=== PATIENT | female | born 1970 | race Caucasian/White ===

== ENCOUNTER 2018-01-19 17:32 | Emergency (ER) | payer OTHER ==
[2018-01-19] MEDS: CIPROFLOXACIN HC OTIC SUSPENSION AU (19:15)
== END 2018-01-19 19:44 | disposition home or self-care (01) ==
LOC: M ED 17:32
DX: H60.93 Unspecified otitis externa, bilateral (principal); G43.909 Migraine, unspecified, not intractable, without status migrainosus; K21.9 Gastro-esophageal reflux disease without esophagitis; F19.10 Other psychoactive substance abuse, uncomplicated
CPT/HCPCS: 99283

== ENCOUNTER → 2018-05-28 | Outpatient (REF) | payer OTHER | LOC: M LAB REF 09:35 | DX: Z12.4 Encounter for screening for malignant neoplasm of cervix (principal); R85.612 Low grade squamous intraepithelial lesion on cytologic smear of anus (LGSIL) | CPT/HCPCS: 88142 ==

== ENCOUNTER → 2018-07-16 | Outpatient (CLI) | payer OTHER | LOC: M RAD 11:35 | DX: Z12.31 Encounter for screening mammogram for malignant neoplasm of breast (principal) | CPT/HCPCS: 77067 ==

== ENCOUNTER → 2019-05-07 | Outpatient (REF) | payer OTHER ==
[~2019-05-07] MED LIST: ACET65TA OR; CIPR0.3S AU; FLAG500T OR; IBUP600T OR; ONDA-1 OR; PRIL20CA OR; VICO5TAB OR
== END ==
LOC: M SFHCLERA 12:50
PROVIDERS: ATTEND Physician Assistant
DX: R50.9 Fever, unspecified (principal)

== ENCOUNTER → 2019-05-07 | Outpatient (CLI) | payer OTHER ==
--- NOTE | 2019-05-07 14:17 | REP ---
CHEST, TWO VIEWS: There is no evidence of acute infiltrate. No pleural effusion is seen. The heart is normal in size. The mediastinal silhouette is unremarkable. The visualized osseous structures are intact. IMPRESSION: No acute pulmonary disease. Electronically Signed by Alonzo Ramsey MD 05/07/2019 07:31 P
== END ==
LOC: M LRY 13:05
PROVIDERS: ATTEND Family Medicine
DX: R50.9 Fever, unspecified (principal); R05 Cough

== ENCOUNTER 2019-12-17 09:48 | Emergency (ER) | payer OTHER ==
[~2019-12-17] VITALS: Ht 170.2 cm; Wt 81.8 kg
[2019-12-17 10:46] LABS: HEMATOCRIT 45.9 % (36.0-47.0); HEMOGLOBIN 14.5 g/dl (12.0-15.5); MEAN CORPUSCULAR HEMOGLOBIN 28.3 pg (27.0-33.0); MEAN CORPUSCULAR HGB CONC 31.6 g/dl (32.0-36.5); MEAN CORPUSCULAR VOLUME 89.6 fl (80.0-96.0); PLATELET COUNT, AUTOMATED 171 10^3/uL (150-450); RED BLOOD COUNT 5.12 10^6/uL (4.00-5.40); WHITE BLOOD COUNT 4.9 10^3/uL (4.0-10.0)
[2019-12-17 11:07] LABS: BLOOD UREA NITROGEN 14 MG/DL (7-18); CALCIUM LEVEL 9.1 MG/DL (8.5-10.1); CARBON DIOXIDE LEVEL 30 MEQ/L (21-32); CHLORIDE LEVEL 108 MEQ/L (98-107); CREATININE FOR GFR 0.96 MG/DL (0.55-1.30); GLOMERULAR FILTRATION RATE > 60.0 (>51); GLUCOSE, FASTING 93 MG/DL (70-100); POTASSIUM SERUM 4.4 MEQ/L (3.5-5.1); SODIUM LEVEL 141 MEQ/L (136-145)
--- NOTE | 2019-12-17 11:24 | REP ---
Head CT without contrast: History: New onset dizziness. Comparison study: October 04, 2011. CT findings: Bone window settings demonstrate an intact bony calvarium. There is no evidence of skull fracture or incidental bony calvarial lesion. The visualized paranasal sinuses appear clear. No intraorbital abnormality is seen. On soft tissue window setting images; the lateral, third, and fourth ventricles are normal in size and position. Ramsey-white differentiation pattern is normal above and below the tentorium. There are is no evidence of intracranial hemorrhage. No mass, edema, infarction, or midline shift is seen. No extra-axial fluid collection is appreciated. Impression: Negative noncontrast head CT. Electronically Signed by Ashok Vivas MD 12/17/2019 11:23 A
[2019-12-17] MEDS ORDERED: ONDANSETRON 4 MG ORAL DISINTEGRATING TAB (Q0162 PER 1MG) PO ONE (11:45)
[2019-12-17 12:31] LABS: AMPHETAMINES LEVEL URINE NEGATIVE (NEGATIVE); BARBITURATES URINE NEGATIVE (NEGATIVE); BENZODIAZEPINES URINE NEGATIVE (NEGATIVE); CANNABINOIDS URINE NEGATIVE (NEGATIVE); COCAINE METABOLITE URINE NEGATIVE (NEGATIVE); METHADONE URINE NEGATIVE (NEGATIVE); OPIATES URINE NEGATIVE (NEGATIVE); PHENCYCLIDINE URINE NEGATIVE (NEGATIVE)
[2019-12-17] MEDS ORDERED: MEDI-453 MC (13:14)
[2019-12-17] MEDS ORDERED: MECLIZINE 25 MG TABLET PO ONE (13:15)
[2019-12-17] MEDS ORDERED: MECL1TAB31 PO (13:17)
[2019-12-17] MEDS ORDERED: ONDA4TAB6 PO (13:17)
[2019-12-17 13:27] VITALS: BP 131/81
--- NOTE | 2019-12-17 20:29 | ECGEPIP ---
[facility] - ED Test Date: 2019-12-17 Pat Name: MARCELA COWART Department: Room: - Gender: Female C D Stripper: CT : 1970 Requested By: Shazia Gomez Order Number: [id number] Reading MD: Shazia Gomez Measurements Intervals [place] Rate: 72 P: 44 [place]: 137 QRS: 3 QRSD: 84 T: 39 QT: 366 QTc: 402 Interpretive Statements SINUS RHYTHM NO PRIOR Electronically Signed on 12-17-2019 20:29:15 EST by Shazia Gomez
== END 2019-12-17 13:31 | disposition home or self-care (01) ==
LOC: M ED 09:48
DX: R42 Dizziness and giddiness (principal); Z79.899 Other long term (current) drug therapy
CPT/HCPCS: 36415; 70450; 80048; 80307; 81001; 85027; 93005; 97112; 97161; 99284; Q0162

== ENCOUNTER 2019-12-20 14:34 | Outpatient (RCR) | payer OTHER ==
[~2019-12-20 14:34] MED LIST changes: +MECL1TAB31 PO; +MEDI-453 MC; +ONDA4TAB6 PO
== END 2019-12-24 ==
LOC: M PT 14:34
PROVIDERS: ATTEND Family Medicine
DX: Z51.89 Encounter for other specified aftercare (principal)

== ENCOUNTER → 2020-01-11 | Outpatient (REF) | payer OTHER ==
[2020-01-12 09:37] LABS: HEPATITIS B SURFACE ANTIBODY NEGATIVE (POSITIVE); RUBELLA IgG QUALITATIVE IMMUNE (IMMUNE)
== END ==
LOC: M SFHCLERA 12:30
PROVIDERS: ATTEND Family Medicine
DX: Z02.1 Encounter for pre-employment examination (principal); Z11.1 Encounter for screening for respiratory tuberculosis

== ENCOUNTER → 2020-01-20 | Outpatient (REF) | payer OTHER | LOC: M SFHCLERA 16:05 | PROVIDERS: ATTEND Family Medicine | DX: Z01.419 Encounter for gynecological examination (general) (routine) without abnormal findings (principal) ==

== ENCOUNTER 2020-09-21 15:33 | Outpatient (RCR) | payer OTHER ==
[~2020-09-21 15:33] MED LIST changes: -CIPR0.3S AU; +CIPR0.3S6 AU
== END 2020-09-23 ==
LOC: M PT 15:33
PROVIDERS: ATTEND Family Medicine
DX: R42 Dizziness and giddiness (principal)

== ENCOUNTER 2020-09-26 14:14 | Outpatient (RCR) | payer OTHER | END 2020-10-23 | LOC: M PT 14:14 | PROVIDERS: ATTEND Family Medicine | DX: R42 Dizziness and giddiness (principal) ==

== ENCOUNTER → 2021-01-31 | Outpatient (CLI) | payer OTHER ==
[2021-01-31 18:50] LABS: HEMOGLOBIN A1c 5.1 %
== END ==
LOC: M LAB 15:25
PROVIDERS: ATTEND Family Medicine
DX: E66.9 Obesity, unspecified (principal)

== ENCOUNTER 2021-02-15 13:45 | Outpatient (RCR) | payer OTHER | END 2021-02-21 | LOC: M PT 13:45 | PROVIDERS: ATTEND Family Medicine | DX: R42 Dizziness and giddiness (principal) ==

== ENCOUNTER 2021-03-15 15:15 | Outpatient (RCR) | payer OTHER | END 2021-03-23 | LOC: M PT 15:15 | PROVIDERS: ATTEND Family Medicine | DX: R42 Dizziness and giddiness (principal) ==

== ENCOUNTER → 2021-05-22 | Outpatient (REF) | payer OTHER | LOC: M SFHCLERA 18:52 | PROVIDERS: ATTEND Student in an Organized Health Care Education/Training Program | DX: Z01.419 Encounter for gynecological examination (general) (routine) without abnormal findings (principal) ==

== ENCOUNTER → 2021-06-14 | Outpatient (REF) | payer OTHER | LOC: M SFHCLERA 14:43 | PROVIDERS: ATTEND Nurse Practitioner Family | DX: R35.0 Frequency of micturition (principal) ==

== ENCOUNTER → 2022-07-17 | Outpatient (CLI) | payer OTHER ==
[2022-07-17 16:11] LABS: BASO % 0.2 % (0.0-1.0); EOS # 0.1 10^3/uL (0.0-0.5); EOS % 1.9 % (0.0-3.0); HEMATOCRIT 41.5 % (36.0-47.0); HEMOGLOBIN 13.5 g/dl (12.0-15.5); LYMPH # 1.8 10^3/uL (1.5-5.0); LYMPH % 34.1 % (24.0-44.0); MEAN CORPUSCULAR HGB CONC 32.5 g/dl (32.0-36.5); MEAN CORPUSCULAR VOLUME 89.1 fl (80.0-96.0); MONO # 0.5 10^3/uL (0.0-0.8); MONO % 9.5 % (2.0-8.0); NEUTROPHILS # 2.8 10^3/uL (1.5-8.5); NEUTROPHILS % 53.9 % (36.0-66.0); PLATELET COUNT, AUTOMATED 167 10^3/uL (150-450); RED BLOOD COUNT 4.66 10^6/uL (4.00-5.40); WHITE BLOOD COUNT 5.2 10^3/uL (4.0-10.0)
[2022-07-17 17:00] LABS: ALBUMIN 3.6 GM/DL (3.2-5.2); BILIRUBIN,TOTAL 0.3 MG/DL (0.2-1.0); CALCIUM LEVEL 9.4 MG/DL (8.5-10.1); CHOLESTEROL RISK RATIO 4.562 (<5); CREATININE FOR GFR 1.06 MG/DL (0.55-1.30); GLOMERULAR FILTRATION RATE 57.5 (>51); POTASSIUM SERUM 4.3 MEQ/L (3.5-5.1); TOTAL PROTEIN 6.7 GM/DL (6.4-8.2)
== END ==
LOC: M LAB 15:17
PROVIDERS: ATTEND Student in an Organized Health Care Education/Training Program
DX: Z00.00 Encounter for general adult medical examination without abnormal findings (principal)

== ENCOUNTER 2023-05-12 13:34 | Emergency (ER) | payer OTHER ==
[~2023-05-12] VITALS: Ht 167.6 cm; Wt 98.9 kg
[~2023-05-12 13:34] MED LIST changes: +CIPR0.3S37 AU; -CIPR0.3S6 AU
[2023-05-12] MEDS ORDERED: ISOVUE-370 76% 100ML VIAL As Ordered ONE (17:58)
[2023-05-12 18:06] LABS: BASO % 0.5 % (0.0-1.0); EOS # 0.1 10^3/uL (0.0-0.5); HEMATOCRIT 43.4 % (36.0-47.0); HEMOGLOBIN 14.3 g/dl (12.0-15.5); LYMPH # 2.1 10^3/uL (1.5-5.0); LYMPH % 32.2 % (24.0-44.0); MEAN CORPUSCULAR HEMOGLOBIN 29.1 pg (27.0-33.0); MEAN CORPUSCULAR HGB CONC 32.9 g/dl (32.0-36.5); MEAN CORPUSCULAR VOLUME 88.2 fl (80.0-96.0); MONO # 0.6 10^3/uL (0.0-0.8); MONO % 8.5 % (2.0-8.0); NEUTROPHILS # 3.7 10^3/uL (1.5-8.5); RED BLOOD COUNT 4.92 10^6/uL (4.00-5.40); WHITE BLOOD COUNT 6.6 10^3/uL (4.0-10.0)
[2023-05-12 18:14] LABS: PLATELET COUNT, AUTOMATED 199 10^3/uL (150-450)
[2023-05-12 21:46] VITALS: BP 174/79; TEMP 97.6; O2SAT 99
== END 2023-05-12 21:50 | disposition home or self-care (01) ==
LOC: M ED 13:34
DX: R22.42 Localized swelling, mass and lump, left lower limb (principal); G43.909 Migraine, unspecified, not intractable, without status migrainosus; K21.9 Gastro-esophageal reflux disease without esophagitis; F15.10 Other stimulant abuse, uncomplicated; Z87.42 Personal history of other diseases of the female genital tract; Z79.83 Long term (current) use of bisphosphonates; Z79.899 Other long term (current) drug therapy
CPT/HCPCS: 36415; 75635; 80047; 85025; 93971; 99284; Q9967

== ENCOUNTER 2023-05-17 17:36 | Emergency (ER) | payer OTHER ==
[~2023-05-17] VITALS: Ht 167.6 cm; Wt 100.0 kg
[2023-05-17 17:37] VITALS: BP 145/83; TEMP 97.9; O2SAT 98
[2023-05-17 18:30] LABS: CALCIUM LEVEL 8.8 MG/DL (8.5-10.1); CREATININE FOR GFR 1.1 MG/DL (0.55-1.30); GLOMERULAR FILTRATION RATE 54.9 (>51)
== END 2023-05-17 18:43 | disposition home or self-care (01) ==
LOC: M ED 17:36
DX: E87.5 Hyperkalemia (principal); Z87.42 Personal history of other diseases of the female genital tract

== ENCOUNTER → 2023-09-04 | Outpatient (CLI) | payer OTHER ==
[~2023-09-04] MED LIST changes: +MECL-209 PO; -MECL1TAB31 PO
== END ==
LOC: M WHC 07:27
PROVIDERS: ATTEND Physician Assistant
DX: N95.8 Other specified menopausal and perimenopausal disorders (principal); Z78.0 Asymptomatic menopausal state; N95.0 Postmenopausal bleeding

== ENCOUNTER → 2024-04-24 | Outpatient (CLI) | payer OTHER ==
[~2024-04-24] MED LIST changes: +ONDA-282 PO; -ONDA4TAB6 PO
[2024-04-24 10:35] LABS: BASO % 0.2 % (0.0-1.0); EOS # 0.1 10^3/uL (0.0-0.5); EOS % 2.1 % (0.0-3.0); HEMOGLOBIN 13.8 g/dl (12.0-15.5); LYMPH # 1.5 10^3/uL (1.5-5.0); LYMPH % 36.7 % (24.0-44.0); MEAN CORPUSCULAR HEMOGLOBIN 29.6 pg (27.0-33.0); MEAN CORPUSCULAR HGB CONC 33.7 g/dl (32.0-36.5); MONO # 0.4 10^3/uL (0.0-0.8); MONO % 8.8 % (2.0-8.0); NEUTROPHILS # 2.2 10^3/uL (1.5-8.5); NEUTROPHILS % 51.7 % (36.0-66.0); PLATELET COUNT, AUTOMATED 141 10^3/uL (150-450); RED BLOOD COUNT 4.66 10^6/uL (4.00-5.40); WHITE BLOOD COUNT 4.2 10^3/uL (4.0-10.0)
[2024-04-24 11:07] LABS: HEMOGLOBIN A1c 5.1 % (4.0-6.0)
[2024-04-24 11:09] LABS: ALBUMIN 3.5 G/DL (3.2-5.2); ALKALINE PHOSPHATASE 89 U/L (46-116); ALT/SGPT 16 U/L (7.0-40); AST/SGOT 13 U/L (<34); BILIRUBIN,TOTAL 0.4 MG/DL (0.3-1.2); BLOOD UREA NITROGEN 17 MG/DL (9-23); CALCIUM LEVEL 9.6 MG/DL (8.5-10.1); CARBON DIOXIDE LEVEL 27 MMOL/L (20-31); CHLORIDE LEVEL 112 MMOL/L (98-107); CHOLESTEROL LEVEL 197 MG/DL (<200); CHOLESTEROL RISK RATIO 4.52 (<5); CREATININE FOR GFR 0.89 MG/DL (0.55-1.30); GLOMERULAR FILTRATION RATE > 60.0 (>51); GLUCOSE, FASTING 89 MG/DL (60-100); HDL CHOLESTEROL 43.5 MG/DL (>40); LDL CHOLESTEROL 123.1 MG/DL (<100); NON-HDL-C 153.5 MG/DL; POTASSIUM SERUM 4.2 MMOL/L (3.5-5.1); SODIUM LEVEL 143 MMOL/L (136-145); TOTAL PROTEIN 6.4 G/DL (5.7-8.2); TRIGLYCERIDES LEVEL 152 MG/DL (<150)
[2024-04-24 11:12] LABS: FREE T4 0.99 NG/DL (0.89-1.76); THYROID STIMULATING HORMONE 1.421 uIU/ML (0.55-4.78)
== END ==
LOC: M LAB 10:06
PROVIDERS: ATTEND Physician Assistant
DX: E78.2 Mixed hyperlipidemia (principal); E55.9 Vitamin D deficiency, unspecified; E66.09 Other obesity due to excess calories; R60.0 Localized edema

== ENCOUNTER 2024-11-04 07:13 | Day surgery (SDC) | payer OTHER ==
[~2024-11-04] VITALS: Ht 170.2 cm; Wt 101.8 kg
[~2024-11-04 07:13] MED LIST changes: +THERTAB52 PO; +VIT1CAPS33 PO
[2024-11-04] MEDS ORDERED: propofoL 200 MG/20 ML VIAL As Ordered ONE (08:39)
[2024-11-04 09:23] VITALS: BP 131/81; O2SAT 99
== END 2024-11-04 09:25 | disposition home or self-care (01) ==
LOC: M OPP 07:13
PROVIDERS: ATTEND Surgery
DX: Z12.11 Encounter for screening for malignant neoplasm of colon (principal); R12 Heartburn; Z80.0 Family history of malignant neoplasm of digestive organs

== ENCOUNTER → 2025-06-28 | Outpatient (REF) | payer OTHER | LOC: M SFHCPLAZ 13:13 | PROVIDERS: ATTEND Student in an Organized Health Care Education/Training Program | DX: Z12.4 Encounter for screening for malignant neoplasm of cervix (principal) ==